=== PATIENT | female | born 1925 | race Two or more races ===

== ENCOUNTER 2017-02-11 21:34 | Emergency (ER) | payer MEDICARE, MEDICAID ==
[~2017-02-11] VITALS: Ht 162.6 cm; Wt 59.0 kg
[~2017-02-11 21:34] MED LIST: ALBU18HF2 INH; ALEN70TA3 PO; ASPI-605 PO; BISA-79 PO; CHOL500050 PO; FLUT16SP NS; KETO15CR2 SUBCUT; LEVO50TA8 PO; LORA10TA7 PO; LORA1TAB PO; MAG355OR42 PO; MEMA10TA PO; MEMA5TAB15 PO; MONT10TA22 PO; QUET25TA34 PO; SIMV40TA5 PO; TRIAMCINOLONE 0.1% TOP
--- NOTE | 2017-02-11 22:21 | NUR ---
PATIENT RETURNED FROM CT SCAN.
[2017-02-11 23:38] VITALS: BP 135/87
--- NOTE | 2017-02-11 23:38 | NUR ---
PATIENT DID NOT WANT CD COPY OF CT SCAN.
== END 2017-02-11 23:39 | disposition home or self-care (01) ==
LOC: ER 21:34
DX: M47.9 Spondylosis, unspecified (principal); R51 Headache; I67.2 Cerebral atherosclerosis; J45.909 Unspecified asthma, uncomplicated; J44.9 Chronic obstructive pulmonary disease, unspecified; Z86.73 Personal history of transient ischemic attack (TIA), and cerebral infarction without residual deficits; F03.90 Unspecified dementia, unspecified severity, without behavioral disturbance, psychotic disturbance, mood disturbance, and anxiety
CPT/HCPCS: 70450; 72125; A4663